=== PATIENT | male | born 1995 | race Caucasian/White ===

== ENCOUNTER 2018-08-22 16:41 | Emergency (ER) | payer BC ==
[~2018-08-22] VITALS: Ht 165.1 cm; Wt 79.4 kg
[2018-08-22] MEDS ORDERED: ZITHROMAX500 MG PO (20:18)
[2018-08-22] MEDS ORDERED: KETO10TA2 PO (20:18)
[2018-08-22] MEDS ORDERED: CIPRODEX OTIC7.5 ML OTIC (20:18)
== END 2018-08-22 20:30 | disposition home or self-care (01) ==
LOC: ER 16:41
DX: H60.8X3 Other otitis externa, bilateral (principal)